=== PATIENT | female | born 1950 | race Caucasian/White ===

== ENCOUNTER → 2017-11-27 | Outpatient (CLI) | payer MEDICARE ==
[~2017-11-27] MED LIST: ATOR10TA9 PO; CHOL10003 PO; LISI2.5T PO; METF500T4 PO; VITA400C43 PO
[2017-11-27 09:53] LABS: BASOPHILS # (AUTO) 0.06 x10^3/uL (0-0.1); BASOPHILS % (AUTO) 1 % (0-1); EOSINOPHILS # (AUTO) 0.39 x10^3/uL (0-0.4); EOSINOPHILS % (AUTO) 5 % (1-7); LYMPHOCYTES # (AUTO) 2.87 x10^3/uL (1-3.4); LYMPHOCYTES % (AUTO) 36 % (22-44); MD NO; MEAN CORPUSCULAR HEMOGLOBIN 30.8 pg (27.0-34.8); MEAN CORPUSCULAR HGB CONC 34.1 g/dL (32.4-35.8); MEAN CORPUSCULAR VOLUME 90.3 fL (80-100); MEAN PLATELET VOLUME 7.3 fL (7.4-10.4); MONOCYTES % (AUTO) 8 % (2-9); NEUTROPHILS % (AUTO) 51 % (42-75); PLATELET COUNT 338 x10^3/uL (130-400); RED BLOOD COUNT 4.44 x10^6/uL (3.82-5.3); RED CELL DISTRIBUTION WIDTH 12.8 % (9.6-15.2)
[2017-11-27 10:01] LABS: MICROSCOPIC INDICATED
[2017-11-27 10:02] LABS: INTERNATIONAL NORMALIZED RATIO 1.01 (0.93-1.1); PROTHROMBIN TIME 10.5 Seconds (9.6-11.5)
[2017-11-27 10:05] LABS: ALANINE AMINOTRANSFERASE 32 U/L (12-78); ALBUMIN 3.3 g/dL (3.4-5.0); ANION GAP 7 mmol/L (5-15); CALCIUM 9.1 mg/dL (8.5-10.1); CHLORIDE 106 mmol/L (98-107); CREATININE 0.92 mg/dL (0.55-1.02)
[2017-11-27 10:07] LABS: ALKALINE PHOSPHATASE 146 U/L (45-117); BILIRUBIN,TOTAL 1.1 mg/dL (0.2-1.0); TOTAL PROTEIN 8.5 g/dL (6.4-8.2)
== END ==
LOC: STAR 08:52
PROVIDERS: ATTEND Urology
DX: Z01.818 Encounter for other preprocedural examination (principal); R94.31 Abnormal electrocardiogram [ECG] [EKG]
CPT/HCPCS: 36415; 80053; 81001; 85025; 85610; 85730; 87077; 87086; 87186; 93005

== ENCOUNTER 2017-12-03 11:36 | Day surgery (SDC) | payer MEDICARE ==
[2017-11-27 09:31] VITALS: BP 135/81
[~2017-12-03] VITALS: Ht 167.6 cm; Wt 71.5 kg
[2017-12-03] MEDS ORDERED: LACTATED RINGERS 1,000 ML IV SCH (11:58)
[2017-12-03] MEDS ORDERED: GABAPENTIN 300 MG CAPSULE PO SCH (12:00)
[2017-12-03] MEDS ORDERED: ONDANSETRON ODT 8 MG PO PRN (12:00)
[2017-12-03] MEDS ORDERED: ACETAMINOPHEN 500 MG TABLET PO ONE (12:00)
[2017-12-03] MEDS ORDERED: ACETAMINOPHEN 500 MG TABLET ONE (12:04)
[2017-12-03] MEDS ORDERED: ONDANSETRON ODT 8 MG ONE (12:04)
[2017-12-03] MEDS ORDERED: GABAPENTIN 300 MG CAPSULE ONE (12:04)
[2017-12-03] MEDS ORDERED: FENTANYL PF 100 MCG/2ML ONE (12:44)
[2017-12-03] MEDS ORDERED: MIDAZOLAM 1 MG/ML, 2ML ONE (12:44)
[2017-12-03] MEDS ORDERED: CEFTRIAXONE 1,000 MG ONE (13:14)
[2017-12-03] MEDS ORDERED: MEPERIDINE/PF 25MG/0.5ML IVPush PRN (13:30)
[2017-12-03] MEDS ORDERED: PROMETHAZINE 12.5 MG SUPP PR PRN (13:30)
[2017-12-03] MEDS ORDERED: ONDANSETRON 2MG/ML, 2ML IVPush PRN (13:30)
[2017-12-03] MEDS ORDERED: PROMETHAZINE 25 MG/ML, 1ML IV PRN (13:30)
[2017-12-03] MEDS ORDERED: FENTANYL PF 100 MCG/2ML IV PRN (13:30)
[2017-12-03] MEDS ORDERED: EPHEDRINE 50 MG/ML, 1ML IM PRN (13:30)
[2017-12-03] MEDS ORDERED: hydrALAzine 20 MG/ML, 1ML IV PRN (13:30)
[2017-12-03] MEDS ORDERED: MORPHINE SULFATE 4 MG/ML, 1ML IVPush PRN (13:30)
[2017-12-03] MEDS ORDERED: ALBUTEROL/IPRATROPIUM 2.5MG/0.5MG, 3 ML NPPB PRN (13:30)
[2017-12-03] MEDS ORDERED: LABETALOL 5MG/ML, 20ML IV PRN (13:30)
[2017-12-03] MEDS ORDERED: MIDAZOLAM 1 MG/ML, 2ML IV PRN (13:30)
[2017-12-03] MEDS ORDERED: ALBUTEROL SULFATE 2.5 MG/3 ML NPPB PRN (13:30)
[2017-12-03] MEDS ORDERED: OXYcodone 5 MG/5 ML ORAL.SOL UDC PO PRN (13:30)
[2017-12-03] MEDS ORDERED: DEXAMETHASONE 4 MG/ML, 1ML ONE (14:41)
[2017-12-03] MEDS ORDERED: CEFAZOLIN 1,000 MG ONE (14:41)
[2017-12-03] MEDS ORDERED: PROPOFOL 10 MG/ML, 20ML ONE (14:41)
[2017-12-03] MEDS ORDERED: ATORVASTATIN 10 MG TABLET PO SCH (21:00)
[2017-12-04] MEDS ORDERED: metFORMIN 500 MG TABLET PO SCH (09:00)
[2017-12-04] MEDS ORDERED: CHOLECALCIFEROL 1,000 UNIT TABLET PO SCH (09:00)
== END 2017-12-03 16:40 ==
LOC: OUT 11:36
PROVIDERS: ATTEND Urology
DX: N20.2 Calculus of kidney with calculus of ureter (principal); Z72.89 Other problems related to lifestyle; Z88.0 Allergy status to penicillin; Z98.890 Other specified postprocedural states
CPT/HCPCS: 82360; 82962; 88300; J0690; J0696; J1100; J2250; J2704; J3010; Q0162; J7120

== ENCOUNTER → 2017-12-19 | Outpatient (CLI) | payer MEDICARE | LOC: RAD 09:42 | PROVIDERS: ATTEND Urology | DX: N20.0 Calculus of kidney (principal) | CPT/HCPCS: 74018 ==